=== PATIENT | male | born 1985 | race Caucasian/White ===

== ENCOUNTER 2020-04-27 09:10 | Emergency (ER) | payer OTHER, SELFPAY ==
[2020-04-27 09:19] VITALS: BP 131/75; PULSE 91; RESP 20; TEMP 36.7; O2SAT 100; BMI 20.7
[2020-04-27 09:35] VITALS: PULSE 69; O2SAT 97
[2020-04-27 10:00] VITALS: PULSE 68; O2SAT 97
[2020-04-27 10:18] VITALS: BP 138/74; PULSE 72; O2SAT 97
[2020-04-27 10:30] VITALS: BP 142/74; PULSE 75; O2SAT 97
--- NOTE | 2020-04-27 10:35 | ED_ITS ---
HPI - Abdominal Pain General Chief Complaint: Abdominal Pain Stated Complaint: umbilical hernia,lifted something yesterday hurts. Time Seen by Provider: 04/27/20 10:01 Source: patient Mode of arrival: Ambulatory Limitations: no limitations History of Present Illness HPI narrative: 35-year-old gentleman with no significant medical history or current medications with an umbilical hernia that has been gradually increasing over the last 2 years. In the last 24 hours he has noticed that it has been bulging through more and bothering him a bit more. He is able to reduce it but typically needs to lie flat. He is having no vomiting, diarrhea, bloody stool, fevers, chills, chest pain, dyspnea. Related Data Allergies Allergy/AdvReac Type Severity Reaction Status Date / Time No Known Drug Allergies Allergy Unverified 09/05/19 11:50 Review of Systems Review of Systems Narrative: Remainder of review of systems including constitutional, ENT, cardiovascular, respiratory, GI, , musculoskeletal, skin, neurologic and psychiatric systems reviewed and are unremarkable except as noted in HPI. Patient History Medical History Hernia, umbilical (Acute) Social History Smoking Status: Former smoker Smoking Status: Former smoker alcohol intake frequency: a few times a week Substance Use Type: does not use Exam Narrative Exam Narrative: General: Alert appropriate in no acute distress Respiratory: Able to speak in full sentences, no obvious respiratory distress Skin: No obvious rashes, warm and dry Abdomen: Small umbilical hernia. There is an approximately 1 cm defect that is easily palpable in the superior portion of the umbilicus. Hernia is easily reduced. Neurologic: Grossly intact no obvious asymmetries or abnormalities Psych, appropriate insight and affect, cooperative Initial Vital Signs Initial Vital Signs: Vital Signs Temperature 98.1 F 04/27/20 09:19 Pulse Rate 91 H 04/27/20 09:19 Respiratory Rate 20 04/27/20 09:19 Blood Pressure 131/75 04/27/20 09:19 Pulse Oximetry 100 04/27/20 09:19 Course Vital Signs Vital signs: Vital Signs - 8 hr 04/27/20 09:19 Temperature 98.1 F Pulse Rate 91 H Respiratory Rate 20 Blood Pressure 131/75 Pulse Oximetry 100 MDM - Abdominal Pain MDM Narrative Medical decision making narrative: Easily reducible umbilical hernia and now increasingly tender and problematic. Patient is referred to [facility] for further evaluation and outpatient follow-up. Safe for home discharge Discharge Plan Departure Patient Disposition: Home Clinical Impression: Hernia, umbilical Qualifiers: Obstruction and gangrene presence: without obstruction or gangrene Qualified Code(s): K42.9 - Umbilical hernia without obstruction or gangrene Instructions: DI Umbilical Hernia-Child Activity Restrictions/Additional Instructions: Please head over to [facility] office on the other end of the hospital and schedule an appointment to be seen and evaluated for your umbilical hernia. If you find that the hernia gets worse and is not able to be pushed back in, will need to return to the emergency department. Referrals: Jim Purdy MD [Physician] -
[2020-04-27 11:07] VITALS: BP 125/75; PULSE 68; O2SAT 98
== END 2020-04-27 11:09 | disposition home or self-care (01) ==
PROVIDERS: Emergency Provider Emergency Medicine
DX: K42.9 Umbilical hernia without obstruction or gangrene (principal)
CPT/HCPCS: 99281

== ENCOUNTER → 2020-05-15 14:05 | Outpatient (CLI) | payer OTHER, SELFPAY ==
[2020-05-17 11:41] LABS: COVID19 Sendout Not Detected (Not Detect)
== END ==
PROVIDERS: Visit Provider Nurse Practitioner
DX: Z11.59 Encounter for screening for other viral diseases (principal)
CPT/HCPCS: 87635

== ENCOUNTER 2020-05-18 06:43 | Day surgery (SDC) | payer OTHER, SELFPAY ==
[2020-05-17 07:16] VITALS: BMI 34.2
[2020-05-18] VITALS (7 sets, daily range): BP systolic 117–132; BP diastolic 68–89; PULSE 62–80; RESP 8–16; TEMP 36.4–37.1; O2SAT 94–97; BMI 35.2
[2020-05-18] MEDS: LACTATED RINGERS 1,000 ML 100 ML IV (07:25)
--- NOTE | 2020-05-18 07:31 | PM.PREOP ---
Pre-operative Note COVID-19 COVID-19 status: Negative Interval Note History & Physical reviewed/Exam performed by Physician: Yes Changes to H&P: No
--- NOTE | 2020-05-18 07:32 | PM.PREOP ---
Pre-operative Note COVID-19 COVID-19 status: Negative Interval Note History & Physical reviewed/Exam performed by Physician: Yes Changes to H&P: No
[2020-05-18] MEDS: CEFAZOLIN 2 GM/100 ML FROZ.PIGGY IV (07:42)
--- NOTE | 2020-05-18 07:58 | SUR.OPER ---
Supine on padded OR bed, head on pillow, arms secured on padded arm boards at <90 degrees abduction, legs uncrossed, safety belt at thigh, tape over blanket over lower legs.
[2020-05-18] MEDS: BUPIVACAINE 0.25% (PF) VIAL 30 ML INJ (08:05)
--- NOTE | 2020-05-18 08:56 | PM.OP.1 ---
Operative Date/Time/Diagnoses Date of procedure: 05/18/20 Time of procedure: 08:56 Pre-op diagnosis: Umbilical hernia Post-op diagnosis: same Procedure & Clinicians Procedure: Open umbilical hernia repair with mesh Same procedure as scheduled: Yes Indications: 35-year-old man with a symptomatic umbilical hernia here for elective repair Surgeon: Jim Purdy Anesthesia Type: General Operative Notes Findings: Incarcerated omental fat within the hernia sac Specimen(s): none sent Estimated Blood Loss (mL): 30 Procedure in detail: Patient was brought to the operating room placed supine on the table. Bilateral lower extremity compression devices were applied. General anesthesia was induced and they were intubated with an endotracheal tube. They received 2 g of Ancef prior to skin incision. They were prepped and draped in sterile fashion. A time-out was performed. A curvilinear incision was made inferior to the umbilicus. The subcutaneous tissues were divided. The umbilical hernia was identified and the hernia sac was dissected off the umbilical skin and circumferentially off of the fascia defect. The hernia sac was sharply opened and contained incarcerated omentum. I was unable to reduce its content back into the abdomen. The omentum was transected passed off the field, the hernia sac was ligated with vicryl suture. Using blunt dissection I carefully carefully freed the hernia sac from beneath the fascia defect in order to accomodate the mesh. The fascia defect was 2 cm in maximal diameter. A Bard Ventralex ST hernia patch 6.3 cm was inserted beneath the fascia defect and above the peritoneum in a sublay position. The mesh was anchored in multiple locations using 0 PDS. The fascia defect was then reapproximated with 0 Ethibond in a transverse direction. The umbilical skin was tacked to the subcutaneous tissues and then the remainder of the subcutaneous tissues were reapproximated using 3 0 Vicry,l skin closed with 4 0 Monocryl followed by the application of Dermabond and Steri-Strips. Sponge instrument count at the end of the operation was correct. Patient tolerated procedure well was extubated and transferred to postoperative care unit in stable condition. Complications: none Post-operative Condition: stable Disposition: same day surgery
[2020-05-18] MEDS: fentaNYL 100 MCG/2 ML INJ IV (09:06)
[2020-05-18] MEDS: OXYCODONE IR 5 MG TABLET PO (09:07)
[2020-05-18] MEDS: ONDANSETRON 4 MG/2 ML INJ IV (09:09)
[2020-05-18] MEDS: ACETAMINOPHEN 325 MG TABLET 650 MG PO (09:31)
== END 2020-05-18 09:53 | disposition home or self-care (01) ==
PROVIDERS: Referring Provider Surgery; Visit Provider Surgery
PROC: (CPT 49587; principal; 2020-05-18 07:45)
DX: K42.0 Umbilical hernia with obstruction, without gangrene (principal); K21.9 Gastro-esophageal reflux disease without esophagitis; E66.9 Obesity, unspecified; Z68.35 Body mass index [BMI] 35.0-35.9, adult
CPT/HCPCS: 49587; C1781; J0690; J1100; J2405; J2704; J3010

== ENCOUNTER 2021-06-28 11:43 | Emergency (ER) | payer OTHER, SELFPAY ==
[2021-06-28 12:17] VITALS: BP 150/89; PULSE 77; RESP 18; TEMP 36.4; O2SAT 98; BMI 36.6
--- NOTE | 2021-06-28 12:27 | DI.RAD.S_ITS ---
PROCEDURE: XR CHEST 1V INDICATIONS: CHEST PAIN AND PRESSURE TECHNIQUE: One view of the chest was acquired. COMPARISON: None. FINDINGS: Surgical changes and devices: None. Lungs and pleura: Low lung volumes. No focal consolidation. No pleural effusions or pneumothorax. Mediastinum: Mediastinal contours appear normal. Heart size is normal. Bones and chest wall: No suspicious bony lesions. Overlying soft tissues appear unremarkable. IMPRESSION: No acute cardiopulmonary process demonstrated radiographically. Dictated by: Gm Lomeli M.D. on 06/28/2021 at 12:50 Approved by: Gm Lomeli M.D. on 06/28/2021 at 12:55
[2021-06-28 13:13] LABS: Add Manual Diff / Slide Review NO; Basophils Absolute Auto 0 /uL (0-100); Basophils Percent Auto 0.8 % (0-2); Eosinophils Absolute Auto 400 /uL (0-450); Eosinophils Percent Auto 6.1 % (2-4); Hematocrit 45.1 % (41-53); Hemoglobin 15.8 g/dL (13.5-17.5); Lymphocytes Absolute Auto 1500 /uL (1100-4500); Lymphocytes Percent Auto 24.3 % (25-40); Mean Corpuscular HGB Conc 35.1 % (30-36); Mean Corpuscular Hemoglobin 32.2 PG (26-34); Mean Corpuscular Volume 91.7 fL (80-100); Monocytes Absolute Auto 500 /uL (0-900); Monocytes Percent Auto 8.5 % (3-14); Neutrophils Absolute Auto 3700 /uL (1500-7000); Neutrophils Percent Auto 60.3 % (50-75); Platelet Count 225 X10^3/uL (150-400); Red Blood Cell Count 4.91 X10^6/uL (4.5-5.9); Red Cell Distribution Width 13.7 % (11.6-14.8); White Blood Cell Count 6.2 X10^3/uL (4.5-11.0)
[2021-06-28 13:22] LABS: Alanine Aminotransferase 111 IU/L (<50); Albumin 4.2 g/dL (3.5-5.0); Albumin Globulin Ratio 1.6 (1.0-2.8); Alkaline Phosphatase 41 U/L (38-126); Aspartate Aminotransferase 52 IU/L (17-59); BUN Creatinine Ratio 15.7 (6-22); Bilirubin Total 0.4 mg/dL (0.2-1.3); Blood Urea Nitrogen 13 mg/dL (9-20); Calcium 9.3 mg/dL (8.4-10.2); Carbon Dioxide 24 mmol/L (22-32); Chloride 105 mmol/L (98-107); Creatine Kinase 88 U/L (55-170); Estimated Glomerular Filt Rate > 60.0 mL/min (>60); Globulin 2.6 g/dL (1.7-4.1); Glucose 102 mg/dL (70-100); HEMOLYSIS < 15 (0-50); Lipase 46 U/L (23-300); Potassium 3.9 mmol/L (3.4-5.1); Sodium 138 mmol/L (137-145); Total Protein 6.8 g/dL (6.3-8.2)
--- NOTE | 2021-06-28 13:30 | ED_ITS ---
HPI - Chest Pain General Chief Complaint: Chest Pain Stated Complaint: weird feeling in chest, little dizzy, SOB Time Seen by Provider: 06/28/21 13:00 Source: patient Mode of arrival: Family Vehicle Limitations: no limitations History of Present Illness HPI narrative: 36-year-old male nonsmoker with noncontributory medical history presents with a chief complaint of about 1 week of various symptoms including shortness of breath, fatigue and multiple episodes of chest pressure. He denies any provocation or palliation of his chest pressure. He states it is largely settled in the center of his chest and does not radiate. He states it is more of a pressure than any sharp or stabbing. He denies any exertional or positional component. He is occasionally short of breath and thinks it seems to be when the pressure is acting up. He denies any exercise intolerance. He is not dizzy or lightheaded. He denies any fever or chills. He states that he just has not felt right since he had COVID about a month and a half ago. He denies any history of blood clot, recent travel or injury. He states that he has a strong family history of cardiac disease in males Related Data Home Medications Medication Instructions Recorded Confirmed ibuprofen 200 mg capsule (Advil 400 mg PO Q6H PRN 05/05/20 06/30/20 Liqui-Gel) Previous Rx's Medication Instructions Recorded acetaminophen 325 mg capsule 650 mg PO QID PRN #60 cap 05/18/20 (Tylenol) oxycodone 5 mg tablet 5 mg PO Q6H PRN #30 tab 05/18/20 cephalexin 750 mg capsule 750 mg PO BID #14 cap 06/16/20 Allergies Allergy/AdvReac Type Severity Reaction Status Date / Time No Known Drug Allergies Allergy Verified 06/28/21 12:17 Review of Systems Review of Systems Narrative: GENERAL: Denies chills, fatigue, malaise, fever, sweats. HEENT: Denies sinus pain, ear pain, sore throat, difficulty swallowing, dizziness. RESPIRATORY: See HPI. CARDIOVASCULAR: See HPI GASTROINTESTINAL: Denies nausea, vomiting, abdominal pain, diarrhea, constipation, melena. : Denies dysuria, frequency, incontinence, hematuria, urinary retention. MUSCULOSKELETAL: denies weakness, joint pain, or bony pain SKIN: Denies rash, skin lesions, or other NEUROLOGIC: Denies weakness, headache, numbness, change in speech, confusion, seizures, incoordination. PSYCHIATRIC: No concerning psychosocial issues. 12 point review of systems is negative except for those stated above Patient History Medical History GERD (gastroesophageal reflux disease) Hernia, umbilical Obesity (BMI 30.0-34.9) Surgical History Hx of appendectomy (06/2016) Family History Father Hypertension Gallstones Grandfather Heart disease Social History marital status: household members: spouse and children occupational status: employed Smoking Status: Former smoker alcohol intake: current Smoking Status: Former smoker tobacco type: cigarettes alcohol intake frequency: a few times a week Substance Use Type: does not use Exam Narrative Exam Narrative: GENERAL: [36 year old patient appears stated age. Well-developed patient, in mild distress. HEAD: Atraumatic. Normocephalic. EYES: Pupils equal round and reactive. Extraocular motions intact. No scleral icterus. No injection or drainage. ENT: Nose without bleeding, purulent drainage. Throat without erythema, tonsillar hypertrophy or exudate. Airway patent. NECK: Trachea midline. Non tender CARDIOVASCULAR: Regular rate and rhythm without murmurs, gallops, or rubs. RESPIRATORY: Clear to auscultation. Breath sounds equal bilaterally. No wheezes, rales, or rhonchi. GASTROINTESTINAL: Abdomen soft, non-tender, nondistended. EXTREMITIES: No edema or joint tenderness. BACK: Nontender without deformity or crepitance. No flank tenderness. NEURO: AOx3. SKIN: No rash or erythema of visible areas Initial Vital Signs Initial Vital Signs: Vital Signs Temperature 97.6 F 06/28/21 12:17 Pulse Rate 77 06/28/21 12:17 Respiratory Rate 18 06/28/21 12:17 Blood Pressure 150/89 H 06/28/21 12:17 Pulse Oximetry 98 06/28/21 12:17 Course Orders Ordered: ED Orders 06/28/21 12:27 XR chest 1V Stat 06/28/21 12:33 EKG-12 Lead Stat 06/28/21 12:55 C-Reactive Protein Quant Stat Complete Blood Count AUTO DIFF Stat Comprehensive Metabolic Panel Stat D Dimer Stat Erythrocyte Sedimentation Rate Stat Lipase Stat Troponin & CK Cardiac Panel Stat 06/28/21 14:10 Trop I [Troponin I] Stat Vital Signs Vital signs: Vital Signs - 8 hr 06/28/21 12:17 06/28/21 14:30 Temperature 97.6 F Pulse Rate 77 96 H Respiratory Rate 18 Blood Pressure 150/89 H 143/84 H Pulse Oximetry 98 98 MDM - Chest Pain Lab Data Result diagrams: 06/28/21 12:55 06/28/21 12:55 Labs: Lab Results 06/28/21 06/28/21 06/28/21 Range/Units 12:55 12:55 12:55 WBC 6.2 (4.5-11.0) X10^3/uL RBC 4.91 (4.5-5.9) X10^6/uL Hgb 15.8 (13.5-17.5) g/dL Hct 45.1 (41-53) % MCV 91.7 (80-100) fL MCH 32.2 (26-34) PG MCHC 35.1 (30-36) % RDW 13.7 (11.6-14.8) % Plt Count 225 (150-400) X10^3/uL Neut % (Auto) 60.3 (50-75) % Lymph % (Auto) 24.3 L (25-40) % [place] % (Auto) 8.5 (3-14) % Eos % (Auto) 6.1 H (2-4) % Baso % (Auto) 0.8 (0-2) % Neut # (Auto) 3700 (2133-2127) /uL Lymph # (Auto) 1500 (2639-6968) /uL [place] # (Auto) 500 (0-900) /uL Eos # (Auto) 400 (0-450) /uL Baso # (Auto) 0 (0-100) /uL ESR 1 (0-15) MM/HR D-Dimer (<230) ng/mL Sodium 138 (137-145) mmol/L Potassium 3.9 (3.4-5.1) mmol/L Chloride 105 (98-107) mmol/L Carbon Dioxide 24 (22-32) mmol/L BUN 13 (9-20) mg/dL Creatinine 0.83 (0.66-1.25) mg/dL Estimated GFR > 60.0 (>60) mL/min BUN/Creatinine Ratio 15.7 (6-22) Glucose 102 H (70-100) mg/dL Calcium 9.3 (8.4-10.2) mg/dL Total Bilirubin 0.4 (0.2-1.3) mg/dL AST 52 (17-59) IU/L ALT 111 H (<50) IU/L Alkaline Phosphatase 41 (38-126) U/L Total Creatine Kinase 88 (55-170) U/L CK-MB (CK-2) TNP CK-MB (CK-2) Rel Index TNP Troponin I < 0.012 (0.01-0.034) ng/mL C-Reactive Protein (<1.0) mg/dL Total Protein 6.8 (6.3-8.2) g/dL Albumin 4.2 (3.5-5.0) g/dL Globulin 2.6 (1.7-4.1) g/dL Albumin/Globulin Ratio 1.6 (1.0-2.8) Lipase 46 (23-300) U/L 06/28/21 06/28/21 06/28/21 Range/Units 12:55 12:55 14:10 WBC (4.5-11.0) X10^3/uL RBC (4.5-5.9) X10^6/uL Hgb (13.5-17.5) g/dL Hct (41-53) % MCV (80-100) fL MCH (26-34) PG MCHC (30-36) % RDW (11.6-14.8) % Plt Count (150-400) X10^3/uL Neut % (Auto) (50-75) % Lymph % (Auto) (25-40) % [place] % (Auto) (3-14) % Eos % (Auto) (2-4) % Baso % (Auto) (0-2) % Neut # (Auto) (6982-4107) /uL Lymph # (Auto) (0612-0513) /uL [place] # (Auto) (0-900) /uL Eos # (Auto) (0-450) /uL Baso # (Auto) (0-100) /uL ESR (0-15) MM/HR D-Dimer < 200 (<230) ng/mL Sodium (137-145) mmol/L Potassium (3.4-5.1) mmol/L Chloride (98-107) mmol/L Carbon Dioxide (22-32) mmol/L BUN (9-20) mg/dL Creatinine (0.66-1.25) mg/dL Estimated GFR (>60) mL/min BUN/Creatinine Ratio (6-22) Glucose (70-100) mg/dL Calcium (8.4-10.2) mg/dL Total Bilirubin (0.2-1.3) mg/dL AST (17-59) IU/L ALT (<50) IU/L Alkaline Phosphatase (38-126) U/L Total Creatine Kinase (55-170) U/L CK-MB (CK-2) CK-MB (CK-2) Rel Index Troponin I < 0.012 (0.01-0.034) ng/mL C-Reactive Protein < 0.5 (<1.0) mg/dL Total Protein (6.3-8.2) g/dL Albumin (3.5-5.0) g/dL Globulin (1.7-4.1) g/dL Albumin/Globulin Ratio (1.0-2.8) Lipase (23-300) U/L Imaging Data Chest x-ray: Radiologist's Impression: Launch?[place] [address] XRay Report Signed Patient: Pardeep Jernigan MR#: [id number] : 1985 Acct:[id number] Age/Sex: 36 / M Date of Service: 06/28/21 Loc: ED Accession Number: [id number] ?? Procedure: XR chest 1V Ordering Provider: *Temp,ED*? PROCEDURE:? XR CHEST 1V ? INDICATIONS:? CHEST PAIN AND PRESSURE ? TECHNIQUE:? One view of the chest was acquired.? ? COMPARISON:? None. ? FINDINGS:? ? Surgical changes and devices:? None.? ? Lungs and pleura:? Low lung volumes.? No focal consolidation.? No pleural effusions or pneumothorax.? ? Mediastinum:? Mediastinal contours appear normal.? Heart size is normal.? ? Bones and chest wall:? No suspicious bony lesions.? Overlying soft tissues appear unremarkable.? ? IMPRESSION:? No acute cardiopulmonary process demonstrated radiographically. ? ? Dictated by: Gm Lomeli M.D. on 06/28/2021 at 12:50 ? ? Approved by: Gm Lomeli M.D. on 06/28/2021 at 12:55 ? ECG Data Interpretation: EKG is normal sinus rhythm rate [70] and free of any signs of ischemia or ectopy. No ST segmental elevation or depression. No T wave inversions MDM Narrative Medical decision making narrative: Multiple causes of chest pain considered including MA, PE, pneumothorax, pneumonia, aortic dissection, and pleurisy. Patient reports no radiation, no diaphoresis, no provocation with exertion, and no vomiting Patient's symptoms improved over duration of stay with above-stated therapies. Findings and discharge diagnosis discussed with patient/family followed by verbalization of understanding Return precautions discussed with patient/family whom verbalize understanding. Discharge Plan Departure Patient Disposition: Home Clinical Impression: Atypical chest pain Instructions: DI for Atypical Chest Pain Activity Restrictions/Additional Instructions: *You have been diagnosed with [atypical chest pain. No evidence of heart attack, blood clot, pneumonia or other obvious diagnosis ] *What to do: *Please continue to take your regular medications as directed. [ ] New medication prescriptions sent to your pharmacy: [ ] [ ] New medication written as a paper prescription [x ] No new medications given *Please follow up with your primary care provider in 2-3 days, call for an appointment. Let them know you were seen in the Emergency Department and that we ask that you be seen in follow up. We will electronically transmit a record of today's note if your PCP is in our system *If you do not have a primary care provider please contact the [facility] Resource line at [phone]. They will ask some questions about your medical history and help get you set up with a doctor in the community. *Return to Emergency Department if you should have any new, worsening or concerning symptoms, such as [fever greater than 101 F, shaking chills, worsening pain, persistent vomiting or other bothersome symptoms] Prescriptions: No Action ibuprofen [Advil Liqui-Gel] 200 mg capsule 400 mg PO Q6H PRN (Reason: Pain) RF: 0 cephalexin 750 mg capsule 750 mg PO BID Qty: 14 RF: 0 oxycodone 5 mg tablet 5 mg PO Q6H PRN (Reason: pain) Qty: 30 RF: 0 acetaminophen [Tylenol] 325 mg capsule 650 mg PO QID PRN (Reason: pain) Qty: 60 RF: 0 Referrals: [facility] [Outside] Miscellaneous,Doctor, MD [Primary Care Provider] -
[2021-06-28 13:33] LABS: Troponin I < 0.012 ng/mL (0.01-0.034)
[2021-06-28 14:06] LABS: Erythrocyte Sedimentation Rate 1 MM/HR (0-15)
[2021-06-28 14:09] LABS: C-Reactive Protein Quant < 0.5 mg/dL (<1.0)
[2021-06-28 14:26] LABS: D Dimer < 200 ng/mL (<230)
[2021-06-28 14:30] VITALS: BP 143/84; PULSE 96; O2SAT 98
[2021-06-28 14:41] LABS: Troponin I < 0.012 ng/mL (0.01-0.034)
== END 2021-06-28 15:07 | disposition home or self-care (01) ==
PROVIDERS: Emergency Medicine; Emergency Provider Emergency Medicine
DX: R07.89 Other chest pain (principal); R06.02 Shortness of breath
CPT/HCPCS: 36415; 71045; 80053; 82550; 83690; 84484; 85025; 85379; 85651; 86140; 93005; 99283; 99284

== ENCOUNTER 2023-01-13 19:14 | Emergency (ER) | payer OTHER, SELFPAY ==
[2023-01-13] VITALS (9 sets, daily range): BP systolic 136–179; BP diastolic 79–105; PULSE 69–91; RESP 14–15; TEMP 36.5; O2SAT 95–98; BMI 36.3
[2023-01-13 19:51] LABS: Add Manual Diff / Slide Review NO; Basophils Absolute Auto 100 /uL (0-100); Basophils Percent Auto 0.9 % (0-2); Eosinophils Absolute Auto 800 /uL (0-450); Eosinophils Percent Auto 8.1 % (2-4); Hematocrit 50.1 % (41-53); Hemoglobin 17.7 g/dL (13.5-17.5); Lymphocytes Absolute Auto 2100 /uL (1100-4500); Lymphocytes Percent Auto 21.3 % (25-40); Mean Corpuscular HGB Conc 35.4 % (30-36); Mean Corpuscular Hemoglobin 32.1 PG (26-34); Mean Corpuscular Volume 90.7 fL (80-100); Monocytes Absolute Auto 900 /uL (0-900); Monocytes Percent Auto 9.2 % (3-14); Neutrophils Absolute Auto 6000 /uL (1500-7000); Neutrophils Percent Auto 60.5 % (50-75); Platelet Count 246 X10^3/uL (150-400); Red Blood Cell Count 5.52 X10^6/uL (4.5-5.9); Red Cell Distribution Width 13.8 % (11.6-14.8); White Blood Cell Count 9.9 X10^3/uL (4.5-11.0)
[2023-01-13 19:55] LABS: Alanine Aminotransferase 53 IU/L (<50); Albumin 4.3 g/dL (3.5-5.0); Albumin Globulin Ratio 1.5 (1.0-2.8); Alkaline Phosphatase 37 U/L (38-126); Aspartate Aminotransferase 41 IU/L (17-59); BUN Creatinine Ratio 15.3 (6-22); Bilirubin Total 0.5 mg/dL (0.2-1.3); Blood Urea Nitrogen 15 mg/dL (9-20); Calcium 9.1 mg/dL (8.4-10.2); Carbon Dioxide 24 mmol/L (22-32); Chloride 102 mmol/L (98-107); Estimated Glomerular Filt Rate > 60 mL/min (>60); Globulin 2.9 g/dL (1.7-4.1); Glucose 108 mg/dL (70-100); HEMOLYSIS 42 (0-50); Potassium 3.8 mmol/L (3.4-5.1); Sodium 136 mmol/L (137-145); Total Protein 7.2 g/dL (6.3-8.2)
--- NOTE | 2023-01-13 20:40 | ED.RECABL ---
HPI - Recheck/Abnormal Lab/Rx General Chief Complaint: Recheck/Abnormal Lab/Rx Stated Complaint: High Red blood count Time Seen by Provider: 01/13/23 20:40 Source: patient Mode of arrival: Ambulatory History of Present Illness HPI narrative: Patient is a 38-year-old male with no past medical history presenting today with 2 weeks of headache fatigue some body aches. Couple days ago he went to go donate blood they said he was not a candidate because his hemoglobin was 19. They told him to drink water he has been staying hydrated and drinking water. Still having headaches. He denies nausea vomiting numbness tingling or weakness. He takes a Tylenol and ibuprofen for he says it does not really help. No blurry vision or double vision. No neck pain no abdominal pain. Here today his headache isn't going away and worried about his blood levels. He actually has emailed his PCP who has not given him any helpful information. Related Data Home Medications Medication Instructions Recorded Confirmed ibuprofen 200 mg capsule (Advil 400 mg PO Q6H PRN Pain 05/05/20 06/30/20 Liqui-Gel) Previous Rx's Medication Instructions Recorded acetaminophen 325 mg capsule 650 mg PO QID PRN pain #60 caps 05/18/20 (Tylenol) oxycodone 5 mg tablet 5 mg PO Q6H PRN pain #30 tabs 05/18/20 cephalexin 750 mg capsule 750 mg PO BID #14 caps 06/16/20 Allergies Allergy/AdvReac Type Severity Reaction Status Date / Time No Known Drug Allergies Allergy Verified 06/28/21 12:17 Review of Systems Review of Systems ROS Unobtainable: All systems reviewed & are unremarkable except as noted in HPI and below Patient History Medical History GERD (gastroesophageal reflux disease) Hernia, umbilical Obesity (BMI 30.0-34.9) Surgical History Hx of appendectomy (06/2016) Family History Father Hypertension Gallstones Grandfather Heart disease Social History marital status: household members: spouse and children occupational status: employed Smoking Status: Former smoker alcohol intake: current Smoking Status: Former smoker tobacco type: cigarettes alcohol intake frequency: a few times a week Substance Use Type: does not use Exam Initial Vital Signs Initial Vital Signs: Vital Signs Pulse Rate 91 H 01/13/23 19:18 Pulse Oximetry 97 01/13/23 19:18 GENERAL: Alert 38-year-old male HEENT: Head atraumatic,EOMI, pupils reactive, face symmetric, neck is supple no meningeal signs CARDIOVASCULAR: Regular rate and rhythm without murmurs, rubs or gallops. RESPIRATORY: Breath sounds equal bilaterally, no wheezes rales or rhonchi. ABDOMEN: Soft, nontender. Normoactive bowel sounds all 4 quadrants. No guarding or rebound. EXTREMITIES: Normal range of motion, no clubbing or edema. Neurovascularly intact NEUROLOGICAL: Alert and oriented x4. SKIN: Warm, dry, no laceration, no petechiae, no rashes or lesions. Course Orders Ordered: ED Orders 01/13/23 20:44 CT head/brain wo con Stat Discontinued Medications Sodium Chloride (Normal Saline 0.9%) 1,000 mls @ 1,000 mls/hr IV BOLUS ONE Stop: 01/13/23 21:43 Last Infusion: 01/13/23 22:09 Dose: 0 mls/hr Documented By: Admin: 01/13/23 20:51 Dose: 1,000 mls/hr Documented By: MARCY Ketorolac Tromethamine (Ketorolac 30 Mg/Ml Vial) 15 mg IV NOW ONE Stop: 01/13/23 20:45 Last Admin: 01/13/23 20:51 Dose: 15 mg Documented By: MARCY Vital Signs Vital signs: Vital Signs - 8 hr 01/13/23 21:00 01/13/23 21:00 01/13/23 21:37 Pulse Rate 73 71 Respiratory Rate 14 Blood Pressure 136/81 Pulse Oximetry 96 97 Oxygen Delivery Method Room Air 01/13/23 22:00 01/13/23 22:14 01/13/23 22:14 Pulse Rate 69 70 Respiratory Rate Blood Pressure 142/79 H Pulse Oximetry 96 95 Oxygen Delivery Method Room Air Room Air MDM - Recheck/Abnormal Lab/Rx Lab Data 01/13/23 19:30 01/13/23 19:30 Labs: Lab Results 01/13/23 01/13/23 Range/Units 19:30 19:30 WBC 9.9 (4.5-11.0) X10^3/uL RBC 5.52 (4.5-5.9) X10^6/uL Hgb 17.7 H (13.5-17.5) g/dL Hct 50.1 (41-53) % MCV 90.7 (80-100) fL MCH 32.1 (26-34) PG MCHC 35.4 (30-36) % RDW 13.8 (11.6-14.8) % Plt Count 246 (150-400) X10^3/uL Neut % (Auto) 60.5 (50-75) % Lymph % (Auto) 21.3 L (25-40) % [place] % (Auto) 9.2 (3-14) % Eos % (Auto) 8.1 H (2-4) % Baso % (Auto) 0.9 (0-2) % Neut # (Auto) 6000 (3699-2494) /uL Lymph # (Auto) 2100 (9745-6232) /uL [place] # (Auto) 900 (0-900) /uL Eos # (Auto) 800 H (0-450) /uL Baso # (Auto) 100 (0-100) /uL Sodium 136 L (137-145) mmol/L Potassium 3.8 (3.4-5.1) mmol/L Chloride 102 (98-107) mmol/L Carbon Dioxide 24 (22-32) mmol/L BUN 15 (9-20) mg/dL Creatinine 0.98 (0.66-1.25) mg/dL Estimated GFR > 60 (>60) mL/min BUN/Creatinine Ratio 15.3 (6-22) Glucose 108 H (70-100) mg/dL Calcium 9.1 (8.4-10.2) mg/dL Total Bilirubin 0.5 (0.2-1.3) mg/dL AST 41 (17-59) IU/L ALT 53 H (<50) IU/L Alkaline Phosphatase 37 L (38-126) U/L Total Protein 7.2 (6.3-8.2) g/dL Albumin 4.3 (3.5-5.0) g/dL Globulin 2.9 (1.7-4.1) g/dL Albumin/Globulin Ratio 1.5 (1.0-2.8) Imaging Data CT scan - head: Radiologist's Impression: PROCEDURE:? CT HEAD/BRAIN WO CON ? INDICATIONS:? headache x 2 weeks ? TECHNIQUE:? Noncontrast 4.5 mm thick angled axial sections acquired from the foramen magnum to the vertex, with coronal and sagittal reformats.? For radiation dose reduction, the following was used:? automated exposure control, adjustment of mA and/or kV according to patient size.? ? COMPARISON:? None. ? FINDINGS:? Image quality:? Excellent.? ? CSF spaces:? Basal cisterns are patent.? No extra-axial fluid collections.? Ventricles are normal in size and shape.? ? Brain:? No midline shift.? No intracranial masses or hemorrhage.? Figueredo-white matter interface is normal.? ? Skull and face:? Calvarium and visualized facial bones are intact, without suspicious lesions.? ? Sinuses:? Visualized sinuses and mastoids are clear.? ? IMPRESSION:? Normal for age, source of current headache symptoms is not seen. ? ? Dictated by: Mike Rinaldi M.D. on 01/13/2023 at 21:52 ? ? MDM Narrative Medical decision making narrative: 30-year-old healthy male complaining of ongoing headache without significant focal deficits but headache does not go away and he is not someone who typically gets headache. CT head is ordered and is negative. Blood work shows that he is mildly hemoconcentrated hemoglobin 17.7 with a hematocrit of 50. This seems to be improving from a couple days ago but I do not have actual record from the blood bank. No significant leukocytosis he is afebrile no concern for severe infection. At this time recommend outpatient follow-up. Discharge Plan Departure Patient Disposition: Home Clinical Impression: Headache Instructions: DI for Headache Activity Restrictions/Additional Instructions: Hemoglobin 17.7, hematocrit 50.1 *You have been diagnosed with headache today mildly dehydrated *What to do: Please have a CBC rechecked with your primary care provider. Stay hydrated with Gatorade or Gatorade like substance. Blood work today is overall reassuring. *Continue to take medications as directed Tylenol and Motrin as needed for headache *Follow up with your primary care provider in 2-3 days or call [phone] *Return to ER if you should have increasing headache numbness tingling weakness dizziness lightheadedness or any new, worsening or concerning symptoms Prescriptions: No Action ibuprofen [Advil Liqui-Gel] 200 mg capsule 400 mg PO Q6H PRN (Reason: Pain) cephalexin 750 mg capsule 750 mg PO BID Qty: 14 0RF oxycodone 5 mg tablet 5 mg PO Q6H PRN (Reason: pain) Qty: 30 0RF acetaminophen [Tylenol] 325 mg capsule 650 mg PO QID PRN (Reason: pain) Qty: 60 0RF Referrals: Miscellaneous,Doctor, MD [Primary Care Provider] - Stand Alone Forms: Patient Portal/API
--- NOTE | 2023-01-13 20:44 | DI.CT.S_ITS ---
PROCEDURE: CT HEAD/BRAIN WO CON INDICATIONS: headache x 2 weeks TECHNIQUE: Noncontrast 4.5 mm thick angled axial sections acquired from the foramen magnum to the vertex, with coronal and sagittal reformats. For radiation dose reduction, the following was used: automated exposure control, adjustment of mA and/or kV according to patient size. COMPARISON: None. FINDINGS: Image quality: Excellent. CSF spaces: Basal cisterns are patent. No extra-axial fluid collections. Ventricles are normal in size and shape. Brain: No midline shift. No intracranial masses or hemorrhage. Figueredo-white matter interface is normal. Skull and face: Calvarium and visualized facial bones are intact, without suspicious lesions. Sinuses: Visualized sinuses and mastoids are clear. IMPRESSION: Normal for age, source of current headache symptoms is not seen. Dictated by: Mike Rinaldi M.D. on 01/13/2023 at 21:52 Approved by: Mike Rinaldi M.D. on 01/13/2023 at 21:52
[2023-01-13] MEDS: KETOROLAC 30 MG/ML VIAL 15 MG IV (20:51)
[2023-01-13] MEDS: SODIUM CHLORIDE 0.9% 1,000 ML 1000 ML IV (20:51)
== END 2023-01-13 22:31 | disposition home or self-care (01) ==
PROVIDERS: Emergency Provider Emergency Medicine
DX: R51.9 Headache, unspecified (principal)
CPT/HCPCS: 36415; 70450; 80053; 85025; 96361; 96374; 99284; J1885

== ENCOUNTER 2024-12-25 17:33 | Emergency (ER) | payer OTHER, SELFPAY ==
[2024-12-25 17:40] VITALS: BP 184/89; PULSE 111; RESP 24; TEMP 37.2; O2SAT 97; BMI 27.6
[2024-12-25 18:18] LABS: Add Manual Diff / Slide Review NO; Basophils Absolute Auto 100 /uL (0-100); Basophils Percent Auto 0.7 % (0-2); Eosinophils Absolute Auto 200 /uL (0-450); Hematocrit 52.6 % (41-53); Hemoglobin 18.5 g/dL (13.5-17.5); Lymphocytes Absolute Auto 1300 /uL (1100-4500); Lymphocytes Percent Auto 16.6 % (25-40); Mean Corpuscular HGB Conc 35.2 % (30-36); Mean Corpuscular Volume 96.7 fL (80-100); Monocytes Absolute Auto 700 /uL (0-900); Monocytes Percent Auto 8.7 % (3-14); Neutrophils Absolute Auto 5600 /uL (1500-7000); Platelet Count 278 X10^3/uL (150-400); Red Blood Cell Count 5.44 X10^6/uL (4.5-5.9); Red Cell Distribution Width 14.4 % (11.6-14.8); White Blood Cell Count 7.8 X10^3/uL (4.5-11.0)
[2024-12-25 18:33] LABS: Alanine Aminotransferase 22 IU/L (<50); Albumin 4.4 g/dL (3.5-5.0); Albumin Globulin Ratio 1.6 (1.0-2.8); Alkaline Phosphatase 75 U/L (38-126); Aspartate Aminotransferase 22 IU/L (17-59); BUN Creatinine Ratio 9.6 (6-22); Bilirubin Total 0.6 mg/dL (0.2-1.3); Blood Urea Nitrogen 10 mg/dL (9-20); Calcium 9.2 mg/dL (8.4-10.2); Chloride 101 mmol/L (98-107); Estimated Glomerular Filt Rate > 60 mL/min (>60); Globulin 2.7 g/dL (1.7-4.1); Glucose 263 mg/dL (70-99); HEMOLYSIS 29 (0-50); Lipase 48 U/L (23-300); Potassium 3.5 mmol/L (3.4-5.1); Sodium 133 mmol/L (137-145); Total Protein 7.1 g/dL (6.3-8.2)
[2024-12-25 18:51] LABS: Carbon Dioxide 8 mmol/L (22-32)
[2024-12-25 19:00] VITALS: BP 151/92; PULSE 84; RESP 20; O2SAT 97
--- NOTE | 2024-12-25 19:04 | ED_ITS ---
HPI - General Adult General Chief complaint: Diabetic Problem Stated complaint: very high blood sugar Time Seen by Provider: 12/25/24 18:47 Source: patient Mode of arrival: Family Vehicle History of Present Illness HPI narrative: 39-year-old gentleman presents with generalized fatigue, polyuria polydipsia used his dad's glucometer to check his sugar today and it was over 500. Father is a diabetic but he has never been formally diagnosed with diabetes came in to be evaluated. Other than what is stated 14 point review of system is negative. complaint: [email or web address] Related Data Home Medications Medication Instructions Recorded Confirmed ibuprofen 200 mg capsule (Advil 400 mg PO Q6H PRN Pain 05/05/20 06/30/20 Liqui-Gel) Previous Rx's Medication Instructions Recorded acetaminophen 325 mg capsule 650 mg (2 x 325 mg) PO QID PRN 05/18/20 (Tylenol) pain #60 caps oxycodone 5 mg tablet 5 mg PO Q6H PRN pain #30 tabs 05/18/20 cephalexin 750 mg capsule 750 mg PO BID #14 caps 06/16/20 insulin aspart U-100 100 unit/mL 5 unit (0.05 mL) SUBCUT TID #15 mL 12/25/24 (3 mL) subcutaneous pen (Novolog FlexPen U-100 Insulin aspart) insulin glargine 100 unit/mL (3 10 unit (0.1 mL) SUBCUT QPM #15 mL 12/25/24 mL) subcutaneous pen (Lantus Solostar U-100 Insulin) Allergies Allergy/AdvReac Type Severity Reaction Status Date / Time No Known Drug Allergies Allergy Verified 12/25/24 17:48 Review of Systems Review of Systems ROS Unobtainable: All systems reviewed & are unremarkable except as noted in HPI and below Patient History Medical History GERD (gastroesophageal reflux disease) Hernia, umbilical Obesity (BMI 30.0-34.9) Surgical History Hx of appendectomy (06/2016) Family History Father Hypertension Gallstones Grandfather Heart disease Social History marital status: household members: spouse and children occupational status: employed Smoking Status: Former smoker alcohol intake: current Smoking Status: Former smoker tobacco type: cigarettes alcohol intake frequency: a few times a week Exam Narrative Exam Narrative: GENERAL: [39] year old patient appears stated age. Well-developed patient, in mild distress. HEAD: Atraumatic. Normocephalic. EYES: Pupils equal round and reactive. Extraocular motions intact. No scleral icterus. No injection or drainage. ENT: Nose without bleeding, purulent drainage. Throat without erythema, tonsillar hypertrophy or exudate. Airway patent. NECK: Trachea midline. Non tender CARDIOVASCULAR: Regular rate and rhythm without murmurs, gallops, or rubs. RESPIRATORY: Clear to auscultation. Breath sounds equal bilaterally. No wheezes, rales, or rhonchi. GASTROINTESTINAL: Abdomen soft, non-tender, nondistended. EXTREMITIES: No edema or joint tenderness. BACK: Nontender without deformity or crepitance. No flank tenderness. NEURO: AOx3. SKIN: No rash or erythema of visible areas Initial Vital Signs Initial Vital Signs: Vital Signs Temperature 98.9 F 12/25/24 17:40 Pulse Rate 111 H 12/25/24 17:40 Respiratory Rate 24 12/25/24 17:40 Blood Pressure 184/89 H 12/25/24 17:40 Pulse Oximetry 97 12/25/24 17:40 Oxygen Delivery Method Room Air 12/25/24 17:40 Course Orders Ordered: ED Orders 12/25/24 17:58 Complete Blood Count AUTO DIFF Stat Comprehensive Metabolic Panel Stat Hemoglobin A1C% w Est Avg Glu Stat Lipase Stat 12/25/24 19:17 Urine Microscopic Stat Ondansetron HCl (Ondansetron 4 Mg/2 Ml Inj) 4 mg IV NOW PRN PRN Reason: Nausea And Vomiting Ondansetron HCl (Ondansetron 4 Mg Odt) 4 mg PO NOW PRN PRN Reason: Nausea And Vomiting Vital Signs Vital signs: Vital Signs - 8 hr 12/25/24 17:40 12/25/24 19:00 Temperature 98.9 F Pulse Rate 111 H 84 Respiratory Rate 24 20 Blood Pressure 184/89 H 151/92 H Pulse Oximetry 97 97 Oxygen Delivery Method Room Air Room Air Medical Decision Making Lab Data 12/25/24 17:58 12/25/24 17:58 Labs: Lab Results 12/25/24 12/25/24 Range/Units 17:58 19:17 WBC 7.8 (4.5-11.0) X10^3/uL RBC 5.44 (4.5-5.9) X10^6/uL Hgb 18.5 H (13.5-17.5) g/dL Hct 52.6 (41-53) % MCV 96.7 (80-100) fL MCH 34.0 (26-34) PG MCHC 35.2 (30-36) % RDW 14.4 (11.6-14.8) % Plt Count 278 (150-400) X10^3/uL Neut % (Auto) 72.0 (50-75) % Lymph % (Auto) 16.6 L (25-40) % [place] % (Auto) 8.7 (3-14) % Eos % (Auto) 2.0 (2-4) % Baso % (Auto) 0.7 (0-2) % Neut # (Auto) 5600 (9727-3841) /uL Lymph # (Auto) 1300 (4851-6150) /uL [place] # (Auto) 700 (0-900) /uL Eos # (Auto) 200 (0-450) /uL Baso # (Auto) 100 (0-100) /uL Sodium 133 L (137-145) mmol/L Potassium 3.5 (3.4-5.1) mmol/L Chloride 101 (98-107) mmol/L Carbon Dioxide 8 L* (22-32) mmol/L BUN 10 (9-20) mg/dL Creatinine 1.04 (0.66-1.25) mg/dL Estimated GFR > 60 (>60) mL/min BUN/Creatinine Ratio 9.6 (6-22) Glucose 263 H (70-99) mg/dL Hemoglobin A1c 10.5 H (4.0-6.0) % Calcium 9.2 (8.4-10.2) mg/dL Total Bilirubin 0.6 (0.2-1.3) mg/dL AST 22 (17-59) IU/L ALT 22 (<50) IU/L Alkaline Phosphatase 75 (38-126) U/L Total Protein 7.1 (6.3-8.2) g/dL Albumin 4.4 (3.5-5.0) g/dL Globulin 2.7 (1.7-4.1) g/dL Albumin/Globulin Ratio 1.6 (1.0-2.8) Lipase 48 (23-300) U/L Urine RBC 0-1/hpf (0-5/HPF) Urine WBC None seen (0-5/HPF) Ur Squamous Epith Cells None seen (0-5/HPF) Urine Bacteria None seen (None) Ur Culture Indicated? Cult not indicated Vol Urine Centrifuged 10ml (spun) Point of Care Testing Glucose POC 273 Urine Dip Bedside Urine Glucose 500 mg/dl Bedside Urine Bilirubin - Negative Bedside Urine Ketone +++ 80 Urine Specific [place] 1.030 Bedside Urine Occult Blood + Bedside Urine pH 5.5 Bedside Urine Protein +/- 15 Bedside Urine Urobilinogen - Negative Bedside Urine Nitrite - Negative Bedside Urine Leukocytes - Negative Esterase Point of care testing: Point of Care Testing Glucose POC 273 Urine Dip Bedside Urine Glucose 500 mg/dl Bedside Urine Bilirubin - Negative Bedside Urine Ketone +++ 80 Urine Specific [place] 1.030 Bedside Urine Occult Blood + Bedside Urine pH 5.5 Bedside Urine Protein +/- 15 Bedside Urine Urobilinogen - Negative Bedside Urine Nitrite - Negative Bedside Urine Leukocytes - Negative Esterase MDM Narrative Medical decision making narrative: All lab work vital signs nurse triage note medication list previous ER visits all imaging studies reviewed. a1C 10.5 Differential diagnosis include new onset diabetes, dehydration, thyroid disease, electrolyte derangement. DC home on Lantus and Humalog prescription. Get established with PCP in 1-2 weeks return with new or worsening symptoms Discharge Plan Departure Patient Disposition: Home Clinical Impression: New onset type 2 diabetes mellitus Instructions: DI for Diabetes Type 2 Prescriptions: New insulin glargine [Lantus Solostar U-100 Insulin] 100 unit/mL (3 mL) insulin pen 10 unit SUBCUT QPM Qty: 15 0RF insulin aspart U-100 [Novolog FlexPen U-100 Insulin] 100 unit/mL (3 mL) insulin pen 5 unit SUBCUT TID Qty: 15 0RF No Action ibuprofen [Advil Liqui-Gel] 200 mg capsule 400 mg PO Q6H PRN (Reason: Pain) cephalexin 750 mg capsule 750 mg PO BID Qty: 14 0RF oxycodone 5 mg tablet 5 mg PO Q6H PRN (Reason: pain) Qty: 30 0RF acetaminophen [Tylenol] 325 mg capsule 650 mg PO QID PRN (Reason: pain) Qty: 60 0RF Referrals: Miscellaneous,Doctor, MD [Primary Care Provider] - Stand Alone Forms: Patient Portal/API/Survey
[2024-12-25 19:48] LABS: Bacteria Urine None Seen; RBC Urine 0-1/HPF (0-5/HPF); Squamous Epithelial Cell Urine None Seen (0-5/HPF); Urine Volume 10mL (spun)
[2024-12-25 19:49] LABS: Culture Indicated Urine Cult Not Indicated; WBC Urine None Seen (0-5/HPF)
[2024-12-25 20:08] LABS: Hemoglobin A1C% w Est Avg Glu 10.5 % (4.0-6.0)
[2024-12-25] MEDS: INSULIN REGULAR 100 UNIT/ML 3 ML VIAL IV (20:54)
[2024-12-25 20:58] VITALS: BP 149/74; PULSE 82; RESP 18; O2SAT 98
== END 2024-12-25 21:03 | disposition home or self-care (01) ==
PROVIDERS: Emergency Medicine; Emergency Provider Family Medicine
DX: E11.9 Type 2 diabetes mellitus without complications (principal)
CPT/HCPCS: 36415; 80053; 81003; 81015; 82962; 83036; 83690; 85025; 96374; 99284